=== PATIENT | female | born 1980 | race Caucasian/White ===

== ENCOUNTER 2019-01-18 12:12 | Outpatient (CLI) | payer OTHER ==
--- NOTE | 2019-01-18 14:09 | RAD ---
LEFT KNEE FOUR VIEWS: HISTORY: Bilateral knee pain. Left knee pain. FINDINGS: There are mild degenerative changes, manifested by osteophyte formation and joint space narrowing in the medial tibiofemoral joint compartment. No fracture, dislocation, or bony destruction is seen. POS: [facility]
--- NOTE | 2019-01-18 14:11 | RAD ---
RIGHT KNEE FOUR VIEWS: HISTORY: Right knee pain. Bilateral knee pain. FINDINGS: There are minimal degenerative changes in the medial tibiofemoral compartment. No fracture, dislocat ion, or bony destruction is seen. POS: [facility]
== END 2019-01-18 12:13 | disposition home or self-care (01) ==
LOC: BICRAD 12:12
PROVIDERS: ATTEND Internal Medicine
DX: M25.561 Pain in right knee (principal); M25.562 Pain in left knee

== ENCOUNTER 2020-03-27 14:22 | Outpatient (CLI) | payer OTHER ==
--- NOTE | 2020-03-27 14:51 | MMO ---
Bilateral MAMMO Bilat Screen [facility]. CLINICAL HISTORY: Patient is 40 years old and is seen for screening. The patient has no family history of breast cancer. The patient has no personal history of cancer. The patient has a history of bilateral Implants in 2011. VIEWS: The views performed were: bilateral craniocaudal; bilateral mediolateral oblique; and bilateral Implant displaced with tomosynthesis. This study has been interpreted with the assistance of computer-aided detection. MAMMOGRAM FINDINGS: There are scattered fibroglandular densities. There are no suspicious masses, suspicious calcifications, or new areas of architectural distortion. Normal implants are present. IMPRESSION: THERE IS NO MAMMOGRAPHIC EVIDENCE OF MALIGNANCY. A ROUTINE FOLLOW-UP MAMMOGRAM IN 1 YEAR IS RECOMMENDED. THE RESULTS OF THIS EXAM WERE SENT TO THE PATIENT. ACR BI-RADS Category 1 - Negative MAMMOGRAPHY NOTE: 1. A negative mammogram report should not delay a biopsy if a dominant of clinically suspicious mass is present. 2. Approximately 10% to 15% of breast cancers are not detected by mammography. 3. Adenosis and dense breasts may obscure an underlying neoplasm. Reported by: SURESH ZAZUETA MD Electonically Signed: [id number]
--- NOTE | 2020-03-27 15:01 | RAD ---
EXAM: Chest 2 views: HISTORY: Chest pain COMPARISON: None. FINDINGS: There is a normal-sized cardiomediastinal silhouette. A pacemaker is seen with its leads in the righ t atrium and ventricle. There is no evidence of consolidation, mass, or pleural effusion. No acute osseous abnormality. IMPRESSION: No evidence of acute cardiopulmonary disease
== END 2020-03-27 14:23 | disposition home or self-care (01) ==
LOC: BICMAMMO 14:22
PROVIDERS: ATTEND Internal Medicine
DX: Z12.31 Encounter for screening mammogram for malignant neoplasm of breast (principal); R07.89 Other chest pain; Z98.82 Breast implant status
CPT/HCPCS: 71046; 77063; 77067

== ENCOUNTER 2021-10-01 09:52 | Outpatient (CLI) | payer OTHER | END 2021-10-01 09:53 | disposition home or self-care (01) | LOC: BICMAMMO 09:52 | PROVIDERS: ATTEND Internal Medicine | DX: Z12.31 Encounter for screening mammogram for malignant neoplasm of breast (principal); Z98.82 Breast implant status | CPT/HCPCS: 77063; 77067 ==

== ENCOUNTER 2023-08-21 11:22 | Outpatient (CLI) | payer OTHER | END 2023-08-21 11:23 | disposition home or self-care (01) | LOC: BICMAMMO 11:22 | PROVIDERS: ATTEND Internal Medicine | DX: Z12.31 Encounter for screening mammogram for malignant neoplasm of breast (principal); Z98.82 Breast implant status | CPT/HCPCS: 77063; 77067 ==